=== PATIENT | male | born 1980 | race Caucasian/White ===

== ENCOUNTER → 2020-06-07 | Outpatient (CLI) | payer BC ==
[~2020-06-07] MED LIST: HYZAAR 50-12.51 EACH PO; MULTI-VITAMIN1 EACH PO; PANTOPRAZOLE SO40 MG PO; TESSALON PERLE100 MG PO; VITAMIN B-121000 MCG PO; VITAMIN D250 MCG PO; ZINC SULFATE220 M1 PO; ZITHROMAX250 MG PO; ZYRTEC10 M3 PO
== END ==
LOC: RAD 16:28
DX: R05 Cough (principal); J84.9 Interstitial pulmonary disease, unspecified
CPT/HCPCS: 71046

== ENCOUNTER 2020-06-15 16:17 | Emergency (ER) | payer BC ==
[2020-06-15 19:29] LABS: HEMOGLOBIN 15.4 gm/dl (14.0-17.5); RED BLOOD COUNT 5.04 M/UL (4.20-5.50); WHITE BLOOD COUNT 11.7 K/UL (4.5-11.0)
[2020-06-15 19:57] LABS: BUN/CREATININE RATIO 14 (0-10)
== END 2020-06-16 00:35 | disposition home or self-care (01) ==
LOC: ER1 16:17
PROVIDERS: Emergency Medicine
DX: E87.6 Hypokalemia (principal); R42 Dizziness and giddiness; I10 Essential (primary) hypertension; Z87.01 Personal history of pneumonia (recurrent)
CPT/HCPCS: 71045; 80053; 81001; 82550; 82553; 83690; 84484; 85025; 93005; 99284

== ENCOUNTER 2020-06-26 09:45 | Emergency (ER) | payer BC ==
[2020-06-26 12:20] LABS: HEMOGLOBIN 15.4 gm/dl (14.0-17.5); RED BLOOD COUNT 5.04 M/UL (4.20-5.50); WHITE BLOOD COUNT 9.3 K/UL (4.5-11.0)
[2020-06-26 12:44] LABS: BUN/CREATININE RATIO 19 (0-10)
== END 2020-06-26 14:27 | disposition home or self-care (01) ==
LOC: ER1 09:45
PROVIDERS: Emergency Medicine
DX: R42 Dizziness and giddiness (principal); I10 Essential (primary) hypertension; Z86.16 Personal history of COVID-19
CPT/HCPCS: 70450; 71045; 80053; 81001; 82550; 82553; 83735; 83874; 84439; 84443; 84484; 85025; 85379; 93005; 99284

== ENCOUNTER 2021-04-21 07:58 | Emergency (ER) | payer BC ==
[~2021-04-21 07:58] MED LIST changes: -IBUPROFEN600 MG PO; -MEDROL4 MG PO
[2021-04-21] MEDS ORDERED: MEDROL4 MG PO (08:21)
[2021-04-21] MEDS ORDERED: IBUPROFEN600 MG PO (08:21)
== END 2021-04-21 08:58 | disposition home or self-care (01) ==
LOC: ER1 07:58
DX: M54.2 Cervicalgia (principal); K21.9 Gastro-esophageal reflux disease without esophagitis; I10 Essential (primary) hypertension; Z90.49 Acquired absence of other specified parts of digestive tract
CPT/HCPCS: 96372; 99283; J1100; J1885

== ENCOUNTER → 2021-04-21 | Outpatient (CLI) | payer BC ==
[~2021-04-21] MED LIST changes: +IBUPROFEN600 MG PO; +MEDROL4 MG PO
== END ==
LOC: KOH-I 11:34 → RAD 11:34
DX: M54.2 Cervicalgia (principal); M47.812 Spondylosis without myelopathy or radiculopathy, cervical region
CPT/HCPCS: 72040; 73030

== ENCOUNTER 2021-04-22 07:51 | Emergency (ER) | payer BC ==
[~2021-04-22 07:51] MED LIST changes: +IBUPROFEN600 MG PO; +MEDROL4 MG PO
== END 2021-04-22 10:30 | disposition home or self-care (01) ==
LOC: ER1 07:51
DX: M50.31 Other cervical disc degeneration, high cervical region (principal); I10 Essential (primary) hypertension; Z90.49 Acquired absence of other specified parts of digestive tract
CPT/HCPCS: 72125; 96372; 99283; J1885

== ENCOUNTER 2021-05-27 21:04 | Emergency (ER) | payer BC ==
[2021-05-27 23:10] LABS: HEMOGLOBIN 15.1 gm/dl (14.0-17.5); RED BLOOD COUNT 4.92 M/UL (4.20-5.50); WHITE BLOOD COUNT 13.7 K/UL (4.5-11.0)
[2021-05-28 00:19] LABS: BUN/CREATININE RATIO 20 (0-10)
[2021-05-28] MEDS ORDERED: DOXYCYCLINE HY100 MG PO (02:14)
[2021-05-28] MEDS ORDERED: DECADRON6 MG PO (02:14)
== END 2021-05-28 02:58 | disposition home or self-care (01) ==
LOC: ER1 21:04
PROVIDERS: Family Medicine
DX: U07.1 COVID-19 (principal); I10 Essential (primary) hypertension; E66.01 Morbid (severe) obesity due to excess calories; K21.9 Gastro-esophageal reflux disease without esophagitis
CPT/HCPCS: 71045; 80048; 83880; 85025; 93005; 99285; U0002

== ENCOUNTER 2021-06-25 03:48 | Emergency (ER) | payer BC ==
[~2021-06-25 03:48] MED LIST changes: +DECADRON6 MG PO; +DOXYCYCLINE HY100 MG PO
[2021-06-25 04:36] LABS: HEMOGLOBIN 14.2 gm/dl (14.0-17.5); RED BLOOD COUNT 4.73 M/UL (4.20-5.50); WHITE BLOOD COUNT 10.1 K/UL (4.5-11.0)
[2021-06-25 05:16] LABS: BUN/CREATININE RATIO 14 (0-10)
[2021-06-25] MEDS ORDERED: PROVENTIL HFA6.7 GM INH (06:32)
[2021-06-25] MEDS ORDERED: PREDNISONE 20 M20 MG PO (06:33)
== END 2021-06-25 09:40 | disposition home or self-care (01) ==
LOC: ER1 03:48
PROVIDERS: Emergency Medicine
DX: R04.2 Hemoptysis (principal); J40 Bronchitis, not specified as acute or chronic; R07.9 Chest pain, unspecified; I10 Essential (primary) hypertension; K21.9 Gastro-esophageal reflux disease without esophagitis; E66.01 Morbid (severe) obesity due to excess calories; F41.9 Anxiety disorder, unspecified
CPT/HCPCS: 80053; 82550; 82553; 83874; 83880; 84484; 85025; 93005; 99285; Q9967

== ENCOUNTER → 2021-07-14 | Day surgery (SDC) | payer BC ==
[~2021-07-14] MED LIST changes: +COZAAR25 MG PO; +HYDROCHLOROTH12.5 MG PO; +PREDNISONE 20 M20 MG PO; +PROVENTIL HFA6.7 GM INH
== END | disposition home or self-care (01) ==
LOC: OR 07:09
DX: Z12.11 Encounter for screening for malignant neoplasm of colon (principal); D12.3 Benign neoplasm of transverse colon; K64.0 First degree hemorrhoids; K57.30 Diverticulosis of large intestine without perforation or abscess without bleeding; E66.01 Morbid (severe) obesity due to excess calories; K59.09 Other constipation; I10 Essential (primary) hypertension; K21.9 Gastro-esophageal reflux disease without esophagitis; G47.30 Sleep apnea, unspecified; Z90.49 Acquired absence of other specified parts of digestive tract; Z68.42 Body mass index [BMI] 45.0-49.9, adult; Z20.822 Contact with and (suspected) exposure to COVID-19; Z87.891 Personal history of nicotine dependence
CPT/HCPCS: J2704; J7040

== ENCOUNTER → 2021-11-03 | Outpatient (CLI) | payer BC | LOC: RAD 12:41 | DX: M13.872 Other specified arthritis, left ankle and foot (principal) | CPT/HCPCS: 73630 ==